=== PATIENT | female | born 1985 | race African-American/Black ===

== ENCOUNTER 2019-12-13 11:50 | Emergency (ER) | payer OTHER ==
[~2019-12-13] VITALS: Ht 157.5 cm; Wt 95.0 kg
[2019-12-13] MEDS ORDERED: FLUTICASONE PROPIONATE 50MCG/SPRAY BOTTLE BOTHNSTRLS STA (12:23)
[2019-12-13 14:04] VITALS: BP 109/70
== END 2019-12-13 14:07 | disposition home or self-care (01) ==
LOC: ER 12:05
DX: O26.893 Other specified pregnancy related conditions, third trimester (principal); R06.02 Shortness of breath; R42 Dizziness and giddiness; R09.81 Nasal congestion; Z20.828 Contact with and (suspected) exposure to other viral communicable diseases
CPT/HCPCS: 99284; C9803; U0003